=== PATIENT | female | born 1960 | race Caucasian/White ===

== ENCOUNTER → 2016-09-13 16:44 | Outpatient (CLI) | payer BC | END | disposition home or self-care (01) | LOC: D.MAMMO 13:15 | DX: Z12.31 Encounter for screening mammogram for malignant neoplasm of breast (principal) ==

== ENCOUNTER 2017-09-30 19:00 | Outpatient (CLI) | payer BC | END 2017-09-30 20:00 | disposition home or self-care (01) | LOC: D.MAMMO 19:00 | DX: Z12.31 Encounter for screening mammogram for malignant neoplasm of breast (principal) ==

== ENCOUNTER → 2018-04-13 07:33 | Outpatient (CLI) | payer BC | END | disposition home or self-care (01) | LOC: D.RT 07:33 | DX: J45.909 Unspecified asthma, uncomplicated (principal) ==